=== PATIENT | male | born 1970 | race Caucasian/White ===

== ENCOUNTER 2019-04-05 11:51 | Inpatient (IN) | payer BC ==
[2019-04-05] MEDS ORDERED: ONDANSETRON 4 MG/2 ML VIAL IVP STA (12:13)
[2019-04-05] MEDS ORDERED: SODIUM CHLORIDE 0.9% 1,000 ML IV ONE ×3 (12:13→17:42)
[2019-04-05] MEDS ORDERED: MORPHINE SULFATE 4 MG/ML SYRINGE IVP STA ×3 (12:13→13:47)
--- NOTE | 2019-04-05 12:25 | ED ---
General Adult HPI - General Source: patient, RN notes reviewed Mode of arrival: wheelchair Limitations: no limitations <Marcelino Briscoe - Last Filed: 04/05/19 14:33> <Calvin Lopez - Last Filed: 04/05/19 15:03> - General Chief complaint: Shortness of Breath Stated complaint: SOB Time Seen by Provider: 04/05/19 12:06 - History of Present Illness Initial comments: This a 41-year-old male presents emergency Department chief complaint of sudden onset of right-sided back, rib pain. Patient states that he rolled over in bed resting 2 hours ago onto his left side in which he felt a pop and sudden onset of pain shortness of breath. Patient states it is worse with movement. Patient denies any trauma. Denies any leg swelling. Patient has no history of pneumothorax. Patient states he recently had a Lexiscan for presurgical cramps which was normal. Patient has no history of A. fib. Patient believes that he injured her rib. He does not taking for pain. Patient also adds that he had nausea and dry heaving throughout the night states it did not feel well yesterday (Marcelino Briscoe) - Related Data Home Medications Medication Instructions Recorded Confirmed Acetaminophen [Tylenol Arthritis] 650 mg PO Q12HR PRN 04/05/19 04/05/19 Allopurinol [Zyloprim] 300 mg PO DAILY 04/05/19 04/05/19 Aspirin [[place] Aspirin EC] 81 mg PO DAILY 04/05/19 04/05/19 Atenolol 25 mg PO DAILY 04/05/19 04/05/19 Celecoxib [CeleBREX] 100 mg PO DAILY 04/05/19 04/05/19 Ezetimibe [Zetia] 10 mg PO DAILY 04/05/19 04/05/19 INSULIN LISPRO (humaLOG) [humaLOG] See Protocol SQ AC-TID 04/05/19 04/05/19 Insulin Degludec [Tresiba 160 unit SQ BID 04/05/19 04/05/19 Flextouch U-200] Losartan Potassium 100 mg PO DAILY 04/05/19 04/05/19 Omeprazole 20 mg PO DAILY 04/05/19 04/05/19 amLODIPine [Norvasc] 10 mg PO DAILY 04/05/19 04/05/19 metFORMIN HCL [Glucophage] 850 mg PO TID 04/05/19 04/05/19 Allergies Allergy/AdvReac Type Severity Reaction Status Date / Time No Known Allergies Allergy Verified 04/05/19 13:11 Review of Systems ROS Other: All systems not noted in ROS Statement are negative. <Marcelino Briscoe - Last Filed: 04/05/19 14:33> ROS Other: All systems not noted in ROS Statement are negative. <Calvin Lopez - Last Filed: 04/05/19 15:03> ROS Statement: Those systems with pertinent positive or pertinent negative responses have been documented in the HPI. Past Medical History Past Medical History: Diabetes Mellitus, Hyperlipidemia, Hypertension Additional Past Medical History / Comment(s): GOUT, ESOPHAGEAL MASS, PULMONARY NODULES. History of Any Multi-Drug Resistant Organisms: None Reported Past Surgical History: No Surgical Hx Reported Past Psychological History: No Psychological Hx Reported Smoking Status: Former smoker Past Alcohol Use History: None Reported Past Drug Use History: None Reported <Marcelino Briscoe - Last Filed: 04/05/19 14:33> General Exam Limitations: no limitations General appearance: alert, in no apparent distress Head exam: Present: atraumatic, normocephalic, normal inspection Eye exam: Present: normal appearance, PERRL, EOMI. Absent: scleral icterus, conjunctival injection, periorbital swelling ENT exam: Present: normal exam, normal oropharynx, mucous membranes moist Neck exam: Present: normal inspection, full ROM. Absent: tenderness, meningi smus, lymphadenopathy Respiratory exam: Present: normal lung sounds bilaterally, chest wall tenderness (Posterior right). Absent: respiratory distress, wheezes, rales, rhonchi, stridor Cardiovascular Exam: Present: normal rhythm, tachycardia, normal heart sounds. Absent: systolic murmur, diastolic murmur, rubs, gallop, clicks GI/Abdominal exam: Present: soft, normal bowel sounds. Absent: distended, tenderness, guarding, rebound, rigid Back exam: Absent: CVA tenderness (R), CVA tenderness (L) Neurological exam: Present: alert, oriented X3, CN II-XII intact Skin exam: Present: warm, dry, intact, normal color. Absent: rash <Marcelino Briscoe - Last Filed: 04/05/19 14:33> Course <Calvin Lopez - Last Filed: 04/05/19 15:03> Vital Signs 04/05/19 04/05/19 04/05/19 11:58 13:00 14:06 Temperature 98.4 F 102.2 F H Pulse Rate 145 H 135 H 131 H Respiratory 22 24 42 H Rate Blood Pressure 129/75 160/92 167/98 O2 Sat by Pulse 94 L 95 95 Oximetry - Reevaluation(s) Reevaluation #1: 04/05/19 15:02 Patient reevaluated by myself, Dr. Lopez. Patient is resting in bed and appears somewhat uncomfortable. Patient remains tachycardic. Chart and results reviewed. Patient reevaluated and reexamined. I do agree with PA findings. This includes diagnostic interpretation and treatment plan. Case was discussed in detail with , covering for hospital call, who will admit. Case also discussed with Dr. Myers, who will consult for critical care. Patient will be admitted to ICU. (Calvin Lopez) EKG Findings - EKG Comments: EKG Findings:: EKG performed at 12.09 sinus tachycardia with incomplete right bundle rate of 152 QRS 96 QTC is QTC 324/5:15 <Marcelino Briscoe - Last Filed: 04/05/19 14:33> Medical Decision Making - Lab Data Result diagrams: 04/05/19 12:29 04/05/19 12:29 <Marcelino Briscoe - Last Filed: 04/05/19 14:33> - Lab Data Result diagrams: 04/05/19 12:29 04/05/19 12:29 <Calvin Lopez - Last Filed: 04/05/19 15:03> - Medical Decision Making 41-year-old male presented for right-sided chest and back pain patient will be admitted for PE, fever, further evaluation pulmonology and GI for esophageal mass (Marcelino Briscoe) - Lab Data Lab Results 04/05/19 04/05/19 04/05/19 Range/Units 12:29 12:29 12:29 WBC 13.5 H (3.8-10.6) k/uL RBC 5.66 (4.30-5.90) m/uL Hgb 16.2 (13.0-17.5) gm/dL Hct 46.9 (39.0-53.0) % MCV 82.8 (80.0-100.0) fL MCH 28.7 (25.0-35.0) pg MCHC 34.6 (31.0-37.0) g/dL RDW 17.1 H (11.5-15.5) % Plt Count 330 (150-450) k/uL Neutrophils % Not Reportable Neutrophils % (Manual) 69 % Band Neutrophils % 15 % Lymphocytes % Not Reportable Lymphocytes % (Manual) 13 % Monocytes % Not Reportable Monocytes % (Manual) 3 % Eosinophils % Not Reportable Basophils % Not Reportable Neutrophils # Not Reportable Neutrophils # (Manual) 11.30 H (1.3-7.7) k/uL Lymphocytes # Not Reportable Lymphocytes # (Manual) 1.76 (1.0-4.8) k/uL Monocytes # Not Reportable Monocytes # (Manual) 0.41 (0-1.0) k/uL Eosinophils # Not Reportable Basophils # Not Reportable Nucleated RBCs 0 (0-0) /100 WBC Manual Slide Review Performed Poikilocytosis Slight Anisocytosis Slight PT 12.2 H (9.0-12.0) sec INR 1.2 H (<1.2) APTT 23.7 (22.0-30.0) sec Sodium 134 L (137-145) mmol/L Potassium 4.3 (3.5-5.1) mmol/L Chloride 100 (98-107) mmol/L Carbon Dioxide 18 L (22-30) mmol/L Anion Gap 16 mmol/L BUN 16 (9-20) mg/dL Creatinine 0.74 (0.66-1.25) mg/dL Est GFR (CKD-EPI)AfAm >90 (>60 ml/min/1.73 sqM) Est GFR (CKD-EPI)NonAf >90 (>60 ml/min/1.73 sqM) Glucose 293 H (74-99) mg/dL Plasma Lactic Acid Paulo (0.7-2.0) mmol/L Calcium 9.5 (8.4-10.2) mg/dL Magnesium 1.3 L (1.6-2.3) mg/dL Total Bilirubin 1.5 H (0.2-1.3) mg/dL AST 21 (17-59) U/L ALT 42 (21-72) U/L Alkaline Phosphatase 91 (38-126) U/L Troponin I (0.000-0.034) ng/mL NT-Pro-B Natriuret Pep pg/mL Total Protein 7.5 (6.3-8.2) g/dL Albumin 4.2 (3.5-5.0) g/dL 04/05/19 04/05/19 04/05/19 Range/Units 12:29 12:29 14:15 WBC (3.8-10.6) k/uL RBC (4.30-5.90) m/uL Hgb (13.0-17.5) gm/dL Hct (39.0-53.0) % MCV (80.0-100.0) fL MCH (25.0-35.0) pg MCHC (31.0-37.0) g/dL RDW (11.5-15.5) % Plt Count (150-450) k/uL Neutrophils % Neutrophils % (Manual) % Band Neutrophils % % Lymphocytes % Lymphocytes % (Manual) % Monocytes % Monocytes % (Manual) % Eosinophils % Basophils % Neutrophils # Neutrophils # (Manual) (1.3-7.7) k/uL Lymphocytes # Lymphocytes # (Manual) (1.0-4.8) k/uL Monocytes # Monocytes # (Manual) (0-1.0) k/uL Eosinophils # Basophils # Nucleated RBCs (0-0) /100 WBC Manual Slide Review Poikilocytosis Anisocytosis PT (9.0-12.0) sec INR (<1.2) APTT (22.0-30.0) sec Sodium (137-145) mmol/L Potassium (3.5-5.1) mmol/L Chloride (98-107) mmol/L Carbon Dioxide (22-30) mmol/L Anion Gap mmol/L BUN (9-20) mg/dL Creatinine (0.66-1.25) mg/dL Est GFR (CKD-EPI)AfAm (>60 ml/min/1.73 sqM) Est GFR (CKD-EPI)NonAf (>60 ml/min/1.73 sqM) Glucose (74-99) mg/dL Plasma Lactic Acid Paulo 2.2 H* (0.7-2.0) mmol/L Calcium (8.4-10.2) mg/dL Magnesium (1.6-2.3) mg/dL Total Bilirubin (0.2-1.3) mg/dL AST (17-59) U/L ALT (21-72) U/L Alkaline Phosphatase (38-126) U/L Troponin I <0.012 (0.000-0.034) ng/mL NT-Pro-B Natriuret Pep 178 pg/mL Total Protein (6.3-8.2) g/dL Albumin (3.5-5.0) g/dL Critical Care Time Critical Care Time: Yes Total Critical Care Time: 40 <Marcelino Briscoe - Last Filed: 04/05/19 14:33> Critical Care Time: Total of 40 minutes of critical care time were used initially evaluated the patient, discussed has medical history with patient and family. Labs, chest x- ray one view portable stat was ordered along with EKG. There was no evidence of pneumothorax on chest x-ray and EKG showed sinus tachycardia felt related to pain. Patient was given pain meds, CT of the chest was ordered to rule out dissection, PE or any small pneumothorax not identified on x-ray. I did receive a phone call from radiologist who found right sided PE. Patient was started on high-dose heparin patient was given multiple rounds of pain medication which has mildly helped his discomfort. Patient is very anxious and will be given Ativan. Patient also found to have a fever that developed in the ER visit lactic acid, blood cultures were added. Patient was also given Tylenol at this time along with fluid bolus to improve heart rate. Case discussed with admitting physician in which patient be admitted with pulmonary consult, GI consult (Marcelino Briscoe) Disposition <Marcelino Briscoe - Last Filed: 04/05/19 14:33> <Calvin Lopez - Last Filed: 04/05/19 15:03> Clinical Impression: Pulmonary embolism, Esophageal mass, Fever Disposition: ADMITTED IP TO THIS HOSP Condition: Critical Referrals: [facility] [REFERRING] - 1-2 days
[2019-04-05 12:54] LABS: Anisocytosis Slight; HCT 46.9 % (39.0-53.0); HGB 16.2 gm/dL (13.0-17.5); MCH 28.7 pg (25.0-35.0); MCHC 34.6 g/dL (31.0-37.0); MCV 82.8 fL (80.0-100.0); Mean Platelet Volume 7.2; Platelet Count 330 k/uL (150-450); Poikilocytosis Slight; RBC 5.66 m/uL (4.30-5.90); RDW 17.1 % (11.5-15.5); WBC 13.5 k/uL (3.8-10.6)
[2019-04-05 12:57] LABS: ALT 42 U/L (21-72); AST 21 U/L (17-59); African American GFR (CKD) >90 (>60 ml/min/1.73 sqM); Albumin 4.2 g/dL (3.5-5.0); Alkaline Phosphatase 91 U/L (38-126); Anion Gap 16 mmol/L; Blood Urea Nitrogen 16 mg/dL (9-20); Calcium 9.5 mg/dL (8.4-10.2); Carbon Dioxide 18 mmol/L (22-30); Chloride 100 mmol/L (98-107); Glucose 293 mg/dL (74-99); Magnesium 1.3 mg/dL (1.6-2.3); Potassium 4.3 mmol/L (3.5-5.1); Sodium 134 mmol/L (137-145); Total Bilirubin 1.5 mg/dL (0.2-1.3); Total Protein 7.5 g/dL (6.3-8.2)
[2019-04-05 13:02] LABS: INR 1.2 (<1.2); Partial Thromboplastin Time 23.7 sec (22.0-30.0); Prothrombin Time 12.2 sec (9.0-12.0)
[2019-04-05 13:08] LABS: Band Neutrophils % 15 %; Lymphocytes # (M) 1.76 k/uL (1.0-4.8); Monocytes # (M) 0.41 k/uL (0-1.0); Neutrophils % (M) 69 %; Nucleated Red Blood Cells 0 /100 WBC (0-0); Total Cells Counted 100
[2019-04-05] MEDS ORDERED: ACETAMINOPHEN TAB 500 MG TAB PO STA (14:04)
--- NOTE | 2019-04-05 14:13 | XR ---
EXAMINATION TYPE: XR chest 1V portable DATE OF EXAM: 04/05/2019 HISTORY: Right sided pain. REFERENCE: NONE. FINDINGS: Heart is enlarged. The lungs are clear. There is mild vascular congestion without yasemin jagjit ma. Pleural spaces are clear. IMPRESSION: CARDIOMEGALY.
[2019-04-05] MEDS ORDERED: HEPARIN SODIUM,PORCINE 10,000 UNIT/ML 1 ML VIAL IV ONE (14:20)
[2019-04-05] MEDS ORDERED: HEPARIN SODIUM,PORCINE 5,000 UNIT/ML 1 ML VIAL IV PRN (14:20)
--- NOTE | 2019-04-05 14:23 | CT ---
EXAMINATION TYPE: CT chest angio for PE DATE OF EXAM: 04/05/2019 COMPARISON: NONE HISTORY: SOB, Possible PE CT DLP: 951.7 mGycm. Automated Exposure Control for Dose Reduction was Utilized. CONTRAST: CTA scan of the thorax is performed without and with IV Contrast, patient injected with 100 ml mL of Isovue 370, pulmonary embolism protocol. MIP Images are created on CT scanner and reviewed. FINDINGS: There are incompletely occluding segmental pulmonary emboli to the right lower lobe. No sec ondary evidence of right heart strain. Right ventricular to left ventricular ratio is within normal l imits. Only very minimal reflux of contrast is seen into the inferior vena cava. Upper abdomen demonstrates diffuse hepatic steatosis and no megaly of the spleen measures 14.7 cm in longitudinal dimension. Hepatic steatosis limits evaluation for hepatic masses. Asymmetric, right gre ater than left nodular appearing gynecomastia seen in the retroareolar regions. Postsurgical changes are seen in the distal esophagus with a hiatal hernia and filled distal esophagu s. There is wall thickening at the gastroesophageal junction and small paraesophageal lymph node seen on image 96 anteriorly and paraesophageal/subcarinal lymph nodes that are hyperdense on image 63 yumiko suring up to 1.0 cm in short axis. Right perihilar adenopathy and image 61 measures 1.2 cm in short a xis. Subcarinal lymph node is heterogenous measuring 2.2 cm in short axis. Other scattered prominent mediastinal lymph nodes are seen. No significant coronary calcifications are evident although the hea rt appears enlarged. No pericardial effusion. There is a small right pleural effusion and associated right basilar atelectasis. There are multiple pulmonary nodules (18 in total known to the patient) some of which are obscured by atelectasis in the pleural effusion. The largest on the left at the left lung base on image 104 measures 5 mm and the l argest on the right is seen in the right middle lobe on image 52 measuring 6 mm. These appear solid i n nature and are concerning for metastasis in this patient with known prior primary esophageal carcin megan. Mild multilevel degenerative changes of the spine are seen. IMPRESSION: 1. Segmental right lower lobe pulmonary emboli appear acute without evidence of right heart strain. 2. Small right pleural effusion and associated subsegmental compressive atelectasis. Finding was disc ussed with the ordering ER provider at 1420 on 04/05/[address] Kumari. 3. Gastroesophageal junction wall thickening and fluid-filled distal esophagus. Recurrence of the pat ient's underlying carcinoma is possible. Surrounding prominent but nonenlarged paraesophageal lymph n odes are seen as well as abnormal enlarged mediastinal adenopathy. 4. Multiple presumed metastatic bilateral solid pulmonary nodules, known to the patient.
[2019-04-05] MEDS ORDERED: LORazepam 2 MG/ML INJ IV STA (14:32)
[2019-04-05] MEDS ORDERED: ONDANSETRON 4 MG/2 ML VIAL IVP PRN (14:36)
[2019-04-05] MEDS ORDERED: ACETAMINOPHEN TAB 325 MG TAB PO PRN (14:36)
[2019-04-05] MEDS ORDERED: NALOXONE 0.4 MG/ML 1 ML VIAL IV PRN ×2 (14:36→16:52)
[2019-04-05] MEDS ORDERED: HYDROmorphone 1 MG/ML 1 ML SYRINGE IVP PRN (14:36)
[2019-04-05] MEDS ORDERED: HYDROmorphone 0.5 MG/0.5 ML SYRINGE IVP PRN (14:36)
[2019-04-05] MEDS: HEPARIN SOD,PORK IN 0.45% NACL 25,000 UNIT in 0.45% NACL 1 250ML.BAG IV SCH (14:36)
[2019-04-05] MEDS ORDERED: SODIUM CHLORIDE 0.9% 1,000 ML IV SCH (14:45)
[2019-04-05 15:30] LABS: Glucose,Whole Blood 271 mg/dL (75-99)
[2019-04-05 16:37] LABS: Glucose,Whole Blood 278 mg/dL (75-99)
[2019-04-05 17:01] LABS: Appearance,Urine Clear (Clear); Bacteria,Urine Rare /hpf; Bilirubin,Urine Negative (Negative); Blood,Urine Trace (Negative); Color,Urine Yellow; Glucose,Urine (UA) 4+ (Negative); Ketones,Urine 1+ (Negative); Leukocyte Esterase,Urine Negative (Negative); Mucus,Urine Few /hpf; Nitrite,Urine Negative (Negative); PH, Urine 5.5 (5.0-8.0); Protein,Urine 2+ (Negative); RBC,Urine 1 /hpf (0-5); Urobilinogen,Urine <2.0 mg/dL (<2.0)
[2019-04-05 17:02] LABS: Specific Gravity,Urine 1.048 (1.001-1.035)
[2019-04-05] MEDS ORDERED: hydrALAZINE HCL 20 MG/ML 1 ML VIAL IVP PRN (17:20)
[2019-04-05] MEDS ORDERED: VANCOMYCIN IV PER PHARMACY 1 EACH MISC MISCELLANE PRN (17:23)
[2019-04-05 17:30] LABS: ABG Base Excess -0.8 mmol/L; ABG HCO3 24 mmol/L (21-25); ABG Oxygen Saturation 96.8 % (94-97); ABG PCO2 41 mmHg (35-45); ABG PH 7.38 (7.35-7.45); ABG PO2 88 mmHg (83-108); ABG TCO2 26 mmol/L (19-24); Allen Test Performed? Yes
[2019-04-05] MEDS ORDERED: INSULIN ASPART (NovoLOG) 100 UNIT/ML VIAL SQ SCH (17:30)
[2019-04-05] MEDS ORDERED: Potassium Replacement Protocol 1 EACH MISC MISCELLANE PRN (17:42)
[2019-04-05] MEDS ORDERED: INSULIN REGULAR BOLUS (FROM DRIP BAG) IV ONE (17:42)
[2019-04-05] MEDS ORDERED: Magnesium Replacement Protocol 1 EACH MISC MISCELLANE PRN (17:42)
--- NOTE | 2019-04-05 17:57 | P.HPIM ---
History of Present Illness H&P Date: 04/05/19 Chief Complaint: Sudden onset right lower chest pain with shortness of breath today. This 49-year-old male with past medical history significant for hypertension, diabetes and metastatic to on high-dose insulin, hyperlipidemia, gout, recently diagnosed is free chills thickening with the remaining nodules currently currently being worked up, lumbar spine and stress fractures who presented to the emergency department to [facility] on with the above complaints. Patient stated that he took shower with hot bath and then he laid on the couch and day after little while he changes position and he felt a sudden sharp pain, severe, 10 over 10 in intensity, nonradiating, associated with significant shortness of breath. Patient was stating that he was not feeling the night before also has some dry heaves and nausea. He denies a history of from atrial fibrillation. Patient had a presurgical cardiac evaluation done which was normal. Patient was scheduled to have some back surgery for his lumbar spine fracture and possible cord compression in next 1-2 weeks. Patient denies loss of consciousness, dizziness, diaphoresis, palpitation, leg swelling, prolonged drive or flight in the recent past, and denies rest of the review system. Was noted to have the right lower lobe acute pulmonary embolism on CT PE protocol. Patient was admitted to the intensive care unit for further management under hospitalist service with critical care consultation on board. Review of Systems As reported above in HPI and rest of the review of system was essentially negative. Past Medical History Past Medical History: Diabetes Mellitus, Hyperlipidemia, Hypertension Additional Past Medical History / Comment(s): GOUT, ESOPHAGEAL MASS, PULMONARY NODULES, lumbar spine fracture with possible cord impingement (as reported by the patient). History of Any Multi-Drug Resistant Organisms: None Reported Past Surgical History: No Surgical Hx Reported Past Psychological History: No Psychological Hx Reported Smoking Status: Former smoker Past Alcohol Use History: None Reported Past Drug Use History: None Reported Medications and Allergies Home Medications Medication Instructions Recorded Confirmed Type Acetaminophen [Tylenol Arthritis] 650 mg PO Q12HR PRN 04/05/19 04/05/19 History Allopurinol [Zyloprim] 300 mg PO DAILY 04/05/19 04/05/19 History Aspirin [[place] Aspirin EC] 81 mg PO DAILY 04/05/19 04/05/19 History Atenolol 25 mg PO DAILY 04/05/19 04/05/19 History Celecoxib [CeleBREX] 100 mg PO DAILY 04/05/19 04/05/19 History Ezetimibe [Zetia] 10 mg PO DAILY 04/05/19 04/05/19 History INSULIN LISPRO (humaLOG) [humaLOG] See Protocol SQ AC-TID 04/05/19 04/05/19 History Insulin Degludec [Tresiba 160 unit SQ BID 04/05/19 04/05/19 History Flextouch U-200] Losartan Potassium 100 mg PO DAILY 04/05/19 04/05/19 History Omeprazole 20 mg PO DAILY 04/05/19 04/05/19 History amLODIPine [Norvasc] 10 mg PO DAILY 04/05/19 04/05/19 History metFORMIN HCL [Glucophage] 850 mg PO TID 04/05/19 04/05/19 History Allergies Allergy/AdvReac Type Severity Reaction Status Date / Time No Known Allergies Allergy Verified 04/05/19 16:54 Physical Exam Vitals: Vital Signs Temp Pulse Resp BP Pulse Ox 04/05/19 15:15 101.9 F H 126 H 36 H 156/95 95 04/05/19 14:06 102.2 F H 131 H 42 H 167/98 95 04/05/19 13:00 135 H 24 160/92 95 04/05/19 11:58 98.4 F 145 H 22 129/75 94 L Intake and Output 04/05/19 04/05/19 04/05/19 06:59 14:59 22:59 Other: Weight 136.078 kg - Constitutional Patient is in severe respiratory distress and unable to take deep breaths cause of the severe right lower chest pain with deep respirations. He is taking shallow respiration at rate of 40 per minute. General appearance: cooperative, severe distress - EENT Eyes: EOMI, normal appearance ENT: hearing grossly normal, NA/AT - Neck Neck: no lymphadenopathy, normal ROM, no rigidity, no stridor, no thyromegaly - Respiratory Respiratory: right: other (No pulmonary friction rub noted on exam over right lower chest.), bilateral: diminished (Due to patient not taking deep breaths related to severe pain.), negative: rales, rhonchi, wheezing - Cardiovascular Rhythm: regular Heart sounds: normal: S1, S2 Abnormal Heart Sounds: no systolic murmur, no diastolic murmur, no rub, no S3 Gallop, no S4 Gallop, other (Tachycardic.) - Gastrointestinal General gastrointestinal: no distended, normal bowel sounds, no rigid, soft, no tenderness - Integumentary Integumentary: no cellulitis, no cyanotic, no decreased turgor, no flushed, no jaundiced, normal, normal turgor, no rash, no ulcer - Musculoskeletal Patient laying in bed moves all 4 extremities no focal neuro deficit noted. - Psychiatric Psychiatric: A&O x's 3, appropriate affect, intact judgment & insight Results CBC & Chem 7: 04/05/19 12:29 04/05/19 12:29 Labs: Abnormal Lab Results - Last 24 Hours (Table) 04/05/19 04/05/19 04/05/19 Range/Units 12:29 12:29 12:29 WBC 13.5 H (3.8-10.6) k/uL RDW 17.1 H (11.5-15.5) % Neutrophils # (Manual) 11.30 H (1.3-7.7) k/uL PT 12.2 H (9.0-12.0) sec INR 1.2 H (<1.2) Sodium 134 L (137-145) mmol/L Carbon Dioxide 18 L (22-30) mmol/L Glucose 293 H (74-99) mg/dL POC Glucose (mg/dL) (75-99) mg/dL Plasma Lactic Acid Paulo (0.7-2.0) mmol/L Magnesium 1.3 L (1.6-2.3) mg/dL Total Bilirubin 1.5 H (0.2-1.3) mg/dL Ur Specific [place] (1.001-1.035) Urine Protein (Negative) Urine Glucose (UA) (Negative) Urine Ketones (Negative) Urine Blood (Negative) Urine Bacteria (None) /hpf Urine Mucus (None) /hpf 04/05/19 04/05/19 04/05/19 Range/Units 14:15 15:26 16:07 WBC (3.8-10.6) k/uL RDW (11.5-15.5) % Neutrophils # (Manual) (1.3-7.7) k/uL PT (9.0-12.0) sec INR (<1.2) Sodium (137-145) mmol/L Carbon Dioxide (22-30) mmol/L Glucose (74-99) mg/dL POC Glucose (mg/dL) 271 H 278 H (75-99) mg/dL Plasma Lactic Acid Paulo 2.2 H* (0.7-2.0) mmol/L Magnesium (1.6-2.3) mg/dL Total Bilirubin (0.2-1.3) mg/dL Ur Specific [place] (1.001-1.035) Urine Protein (Negative) Urine Glucose (UA) (Negative) Urine Ketones (Negative) Urine Blood (Negative) Urine Bacteria (None) /hpf Urine Mucus (None) /hpf 04/05/19 Range/Units 16:40 WBC (3.8-10.6) k/uL RDW (11.5-15.5) % Neutrophils # (Manual) (1.3-7.7) k/uL PT (9.0-12.0) sec INR (<1.2) Sodium (137-145) mmol/L Carbon Dioxide (22-30) mmol/L Glucose (74-99) mg/dL POC Glucose (mg/dL) (75-99) mg/dL Plasma Lactic Acid Paulo (0.7-2.0) mmol/L Magnesium (1.6-2.3) mg/dL Total Bilirubin (0.2-1.3) mg/dL Ur Specific [place] 1.048 H (1.001-1.035) Urine Protein 2+ H (Negative) Urine Glucose (UA) 4+ H (Negative) Urine Ketones 1+ H (Negative) Urine Blood Trace H (Negative) Urine Bacteria Rare H (None) /hpf Urine Mucus Few H (None) /hpf Chest x-ray: report reviewed CT scan - chest: report reviewed (Right lower lobe acute pulmonary embolism, multiple pulmonary nodules and esophageal abnormality as reported) Thrombosis Risk Factor Assmnt - DVT/VTE Prophylaxis DVT/VTE Prophylaxis: Contraindicated - See note (Patient is on full dose anticoagulation with IV heparin.) Assessment and Plan (1) Pulmonary embolism Narrative/Plan: Patient was started on IV heparin full dose protocol. Cause of pulmonary embolism not known at this time but due to patient's other comorbid illnesses may have been related to his hypercoagulable state secondary to possible esophageal mass. Patient will be needing anticoagulation at least for 3-6 months. Current Visit: Yes Status: Acute Priority: High Code(s): I26.99 - OTHER PULMONARY EMBOLISM WITHOUT ACUTE COR PULMONALE SNOMED Code(s): 97180366 (2) Acute respiratory distress Narrative/Plan: Patient was placed in intensive care unit for closer monitoring and the critical care was consulted patient may need to have respiratory protection prophylactically and intubation done if he continues to be tachypneic and there show signs of exhaustion. Current Visit: Yes Status: Acute Priority: High Code(s): R06.03 - ACUTE RESPIRATORY DISTRESS SNOMED Code(s): 813005315 (3) Tachycardia Narrative/Plan: Most likely secondary to above, patient will be monitored in the intensive care unit, IV fluids will be given to overcome dehydration if it is present and will be monitored closely. Current Visit: Yes Status: Acute Priority: High Code(s): R00.0 - TACHYC ARDIA, UNSPECIFIED SNOMED Code(s): 5413498 (4) Hypomagnesemia Narrative/Plan: Magnesium will be replaced and will check levels in the morning Current Visit: Yes Status: Acute Priority: High Code(s): E83.42 - HYPOMAGNESEMIA SNOMED Code(s): 067727823 (5) Hyponatremia Narrative/Plan: Mild hyponatremia, will monitor closely and check E-lytes in the morning Current Visit: Yes Status: Acute Priority: Medium Code(s): E87.1 - HYPO- OSMOLALITY AND HYPONATREMIA SNOMED Code(s): 14426220 (6) Lactic acidosis Narrative/Plan: It could be because of for acute pulmonary embolic same or secondary to metformin, will hold metformin for next 48 hours and will monitor and will repeat lactic acid level in the morning Current Visit: Yes Status: Acute Priority: High Code(s): E87.2 - ACIDOSIS SNOMED Code(s): 07218480 (7) Diabetes mellitus type 2, insulin dependent Narrative/Plan: Patient's metformin will be held and scheduled long-acting insulin will be decreased in dose and he will be started on consistent carbohydrate diet and there I will start him on aspart sliding scale according to the protocol. Will monitor for next 24-48 hours and readjust the dose of medications. Current Visit: No Status: Chronic Priority: High Code(s): E11.9 - TYPE 2 DIABETES MELLITUS WITHOUT COMPLICATIONS; Z79.4 - LONG-TERM (CURRENT) USE OF INSULIN SNOMED Code(s): 693809025 (8) Hypertension, essential, benign Narrative/Plan: Patient is on multiple medication to control his blood pressure I will continue amlodipine and atenolol and I will hold losartan as patient just recently received IV contrast for his CT chest. Will monitor renal function and resume full medication after 48 hours. In the meanwhile I will give Apresoline with parameters to better control blood pressure. Current Visit: No Status: Chronic Priority: Medium Code(s): I10 - ESSENTIAL (PRIMARY) HYPERTENSION SNOMED Code(s): 6176011 (9) Gout Narrative/Plan: Currently patient is stable and we'll continue home medications for now. Current Visit: No Status: Chronic Priority: Low Code(s): M10.9 - GOUT, UNSPECIFIED SNOMED Code(s): 88795393 (10) Pulmonary nodules/lesions, multiple Narrative/Plan: The region of pulmonary nodules is not known yet and patient was in the middle of being worked up for his esophageal mass and the nature of pulmonary nodules. Currently patient has more acute issues with respiratory distress and pulmonary embolism that is to be taken care of first. Patient will follow up with his primary doctor and global human resources director once discharged. Current Visit: No Status: Chronic Priority: High Code(s): R91.8 - OTHER NONSPECIFIC ABNORMAL FINDING OF LUNG FIELD SNOMED Code(s): 538805750 (11) Esophageal mass Narrative/Plan: Patient was worked up at other hospitals for his dysphagia lesion and biopsy as reported by the patient was inconclusive. This will be worked up again as an outpatient once patient is more clinically stable from his acute condition. Current Visit: No Status: Chronic Priority: High Code(s): K22.8 - OTHER SPECIFIED DISEASES OF ESOPHAGUS SNOMED Code(s): 262934205 (12) Fever Narrative/Plan: Multiple causes for his acute febrile illness including but not limited to acute pulmonary embolism, atelectasis from that, pleurisy and sd-infarct pleuritis to mention some. We'll continue to monitor and start patient on when necessary Tylenol to control the fever. Current Visit: Yes Status: Acute Priority: High Code(s): R50.9 - FEVER, UNSPECIFIED SNOMED Code(s): 531051439 Time with Patient: Greater than 30 (Total time spent was more than 45 minutes, most of the time was spent in coordination of care between the physicians and patient evaluation. Counseling was also done to the patient.)
[2019-04-05] MEDS: INSULIN REGULAR 100 UNIT in SODIUM CHLORIDE 0.9% 100 ML IV SCH (18:34)
[2019-04-05] MEDS: HYDROmorphone 1 MG/ML 1 ML SYRINGE IVP PRN ×3 (18:45→23:48)
[2019-04-05] MEDS: D5-0.45% NACL WITH KCL 20MEQ/L 1,000 ML IV SCH ×2 (18:55→18:56)
[2019-04-05] MEDS: SODIUM CHLORIDE 0.9% 1,000 ML IV SCH ×2 (18:57→23:35)
[2019-04-05 19:06] LABS: Glucose,Whole Blood 226 mg/dL (75-99)
[2019-04-05 19:12] LABS: Glucose,Whole Blood 229 mg/dL (75-99)
[2019-04-05] MEDS ORDERED: VANCOMYCIN 2,500 MG in SODIUM CHLORIDE 0.9% 500 ML 500 ML IVPB ONE (20:00)
[2019-04-05] MEDS: PANTOPRAZOLE 40 MG/10 ML VIAL IV SCH (20:50)
[2019-04-05] MEDS: CEFEPIME 1 GM in SODIUM CHLORIDE 0.9% 50 ML IVPB SCH (20:50)
[2019-04-05] MEDS: MAGNESIUM SULFATE-D5W PMX 1 GM in DEXTROSE/WATER 1 100ML.BAG IVPB SCH ×2 (20:50→23:49)
[2019-04-05] MEDS ORDERED: INSULIN DETEMIR (LEVEMIR) 100 UNIT/ML SYR SQ SCH (21:00)
[2019-04-05 21:11] LABS: African American GFR (CKD) >90 (>60 ml/min/1.73 sqM); Anion Gap 8 mmol/L; Carbon Dioxide 25 mmol/L (22-30); Chloride 103 mmol/L (98-107); Glucose 208 mg/dL (74-99); Potassium 4.5 mmol/L (3.5-5.1); Sodium 136 mmol/L (137-145)
[2019-04-05 21:16] LABS: Glucose,Whole Blood 198 mg/dL (75-99)
[2019-04-05 22:42] LABS: ABG Base Excess -0.4 mmol/L; ABG HCO3 24 mmol/L (21-25); ABG Oxygen Saturation 94.8 % (94-97); ABG PCO2 40 mmHg (35-45); ABG PO2 69 mmHg (83-108); ABG TCO2 26 mmol/L (19-24); Allen Test Performed? Yes
[2019-04-05 22:57] LABS: Glucose,Whole Blood 198 mg/dL (75-99)
[2019-04-05] MEDS ORDERED: ALPRAZolam 0.5 MG TAB PO PRN (23:10)
[2019-04-05 23:11] LABS: African American GFR (CKD) >90 (>60 ml/min/1.73 sqM); Anion Gap 9 mmol/L; Blood Urea Nitrogen 14 mg/dL (9-20); Carbon Dioxide 21 mmol/L (22-30); Chloride 105 mmol/L (98-107); Glucose 207 mg/dL (74-99); Phosphorus 2.7 mg/dL (2.5-4.5); Potassium 4.3 mmol/L (3.5-5.1); Sodium 135 mmol/L (137-145)
[2019-04-05] MEDS: LORazepam 2 MG/ML INJ IV PRN (23:48)
[2019-04-06 01:12] LABS: Glucose,Whole Blood 174 mg/dL (75-99)
[2019-04-06] MEDS: HEPARIN SOD,PORK IN 0.45% NACL 25,000 UNIT in 0.45% NACL 1 250ML.BAG IV SCH ×2 (01:29→12:56)
[2019-04-06] MEDS: D5-0.45% NACL WITH KCL 20MEQ/L 1,000 ML IV SCH (01:29)
[2019-04-06] MEDS: HYDROmorphone 1 MG/ML 1 ML SYRINGE IVP PRN ×6 (01:59→12:55)
[2019-04-06] MEDS: LORazepam 2 MG/ML INJ IV PRN ×2 (03:21→08:21)
[2019-04-06] MEDS: INSULIN REGULAR 100 UNIT in SODIUM CHLORIDE 0.9% 100 ML IV SCH (03:27)
[2019-04-06 03:37] LABS: Glucose,Whole Blood 163 mg/dL (75-99)
[2019-04-06] MEDS ORDERED: ACETAMINOPHEN IV (For NPO) 1,000 MG in EMPTY BAG 1 BAG IVPB ONE (04:06)
[2019-04-06] MEDS: SODIUM CHLORIDE 0.9% 1,000 ML IV SCH ×2 (04:18→08:39)
--- NOTE | 2019-04-06 04:42 | XR ---
EXAM: XR Chest, 1 View CLINICAL HISTORY: ITS.REASON XR Reason: shortness of breath TECHNIQUE: Frontal view of the chest. COMPARISON: CXR 04/05/19 FINDINGS: Lungs: See below. Pleural space: New extensive right lung density partially due to a new moderate sized pleural effusion and possible underlying alveolar disease. Mild bilateral interstitial thickening which may reflect a degree of pulmonary edema. No pneumothorax. Heart: Heart size appears enlarged. Mediastinum: Unremarkable. Bones/joints: Unremarkable. IMPRESSION: 1. New extensive right lung density partially due to a new moderate sized pleural effusion and possible underlying alveolar disease. Mild bilateral interstitial thickening which may reflect a degree of pulmonary edema. 2. Heart size appears enlarged.
[2019-04-06 04:47] LABS: HGB 14.5 gm/dL (13.0-17.5); Hypochromasia Slight; MCH 27.5 pg (25.0-35.0); MCHC 32.2 g/dL (31.0-37.0); MCV 85.5 fL (80.0-100.0); Mean Platelet Volume 7.2; Platelet Count 280 k/uL (150-450); Poikilocytosis Slight; RBC 5.26 m/uL (4.30-5.90); RDW 15.8 % (11.5-15.5)
[2019-04-06 04:53] LABS: INR 1.7 (<1.2); Partial Thromboplastin Time 63.6 sec (22.0-30.0); Prothrombin Time 16.5 sec (9.0-12.0)
[2019-04-06 04:58] LABS: African American GFR (CKD) >90 (>60 ml/min/1.73 sqM); Anion Gap 8 mmol/L; Blood Urea Nitrogen 15 mg/dL (9-20); Calcium 8.3 mg/dL (8.4-10.2); Carbon Dioxide 21 mmol/L (22-30); Chloride 107 mmol/L (98-107); Glucose 169 mg/dL (74-99); Magnesium 1.9 mg/dL (1.6-2.3); Potassium 4.3 mmol/L (3.5-5.1); Sodium 136 mmol/L (137-145)
[2019-04-06 05:17] LABS: WBC 19.4 k/uL (3.8-10.6)
[2019-04-06 05:19] LABS: Band Neutrophils % 24 %; Lymphocytes # (M) 1.55 k/uL (1.0-4.8); Monocytes # (M) 0.58 k/uL (0-1.0); Neutrophils % (M) 65 %; Nucleated Red Blood Cells 0 /100 WBC (0-0); Total Cells Counted 100
[2019-04-06 05:19] LABS: Glucose,Whole Blood 151 mg/dL (75-99)
[2019-04-06 07:20] LABS: Glucose,Whole Blood 120 mg/dL (75-99)
[2019-04-06] MEDS ORDERED: FUROSEMIDE 10 MG/ML 2 ML VIAL IV ONE (07:48)
[2019-04-06] MEDS ORDERED: D5-0.45% NACL WITH KCL 20MEQ/L 1,000 ML IV SCH (07:49)
[2019-04-06] MEDS ORDERED: INSULIN REGULAR 100 UNIT in SODIUM CHLORIDE 0.9% 100 ML IV SCH (08:00)
[2019-04-06] MEDS: PANTOPRAZOLE 40 MG/10 ML VIAL IV SCH (08:21)
--- NOTE | 2019-04-06 08:30 | P.CONS ---
History of Present Illness - Reason for Consult Consult date: 04/06/19 esophageal mass Requesting physician: Sylvia Le - Chief Complaint right sided back rib pain - History of Present Illness 49-year-old gentleman patient of Dr. Pop Bradshaw [place] past medical history of diabetes mellitus, hypertension, hyperlipidemia, gout admitted with acute right sided rib/back pain shortness of breath. Patient was evaluated 01/30/192018 at [place], [place] nontraumatic lumbar discomfort according to his CT lumbar thoracic spine reported L5-S1 abnormalities/fracture. Additionally upon radiographic imaging there was a questionable esophageal mass. CT of the thorax reported approximate 4 cm rounded cystic structure along the right lateral margin of the distal thoracic esophagus. Multiple small bilateral hilar lymph nodes. Numerous bilateral pulmonary nodules throughout the lung primarily in her peripheral distribution ranging in size between 1 and 6 mm. Diffuse fatty infiltration of the liver. Patient underwent EGD/EUS on 03/27/2019; EGD per was unremarkable no obvious medical so abnormalities, EUS performed by Dr. De La Cruz reported findings of a hypoechoic lesion identified at 36 cm from the incisors measuring 41.137.5 mm. It appears to arise from the MM layer but examination is impaired due to compression artifact. Multiple proximal mediastinal lymph nodes largest measuring 13.5 mm. Esophageal wall layers otherwise normal. Procedure was technically difficult due to patient movement and coughing cytology was obtained but pending. Family states he is scheduled soon for core biopsy at [facility] to assess with a definitive diagnosis. CT angiogram yesterday reported a segmental right lower lobe pulmonary emboli without evidence of right heart strain. GE junction wall thickening and fluid- filled distal esophagus. Surrounding prominent but not enlarged paraesophageal lymph nodes are seen as well as abnormal enlarged mediastinal adenopathy. Multiple presumed metastatic bilateral solid pulmonary nodules known to the patient. Receiving intravenous heparin. White count 13.5-19.4. Hemoglobin 14.5. Platelet 280. INR 1.7. Sodium 136. Potassium 4.3. BUN 15. Creatinine 0.8. Total bilirubin 1.5. AST 21. ALT 42. AP 91. Influenza not detected. Acetone negative. Unintentional weight loss of about 10 pounds since the end of December. Denies hematemesis hematochezia or melena. No nausea or vomiting. Denies abdominal pain. Afebrile. Review of Systems Constitutional: Denies fever, chills, sweats, weight gain, or loss. HEENT: Negative for migraines, blurred vision or loss, earaches, drainage, tinnitus, oral mucosal lesions, dysphagia, or odynophagia. Cardiac: Negative for chest pain, arrhythmias, or palpitation. Respiratory: Admitted with shortness of breath denies hemoptysis, cough, or sputum production. Gastrointestinal: See HPI for pertinent findings. Genitourinary: Negative for hematuria, urgency, frequency, polyuria, dysuria, or penile discharge. Musculoskeletal: Negative for muscle aches, swelling, arthritis, and arthralgias. Neurologic: Negative for stroke or TIA. Endocrine: Negative for thyroid problems. Skin: Negative for rash or itching. Psychiatric: Negative history for depression and anxiety Past Medical History Past Medical History: Diabetes Mellitus, Hyperlipidemia, Hypertension Additional Past Medical History / Comment(s): GOUT, ESOPHAGEAL MASS, PULMONARY NODULES, lumbar spine fracture with possible cord impingement (as reported by the patient). History of Any Multi-Drug Resistant Organisms: None Reported Past Surgical History: No Surgical Hx Reported Past Anesthesia/Blood Transfusion Reactions: No Reported Reaction Smoking Status: Former smoker Medications and Allergies Home Medications Medication Instructions Recorded Confirmed Type Acetaminophen [Tylenol Arthritis] 650 mg PO Q12HR PRN 04/05/19 04/05/19 History Allopurinol [Zyloprim] 300 mg PO DAILY 04/05/19 04/05/19 History Aspirin [[place] Aspirin EC] 81 mg PO DAILY 04/05/19 04/05/19 History Atenolol 25 mg PO DAILY 04/05/19 04/05/19 History Celecoxib [CeleBREX] 100 mg PO DAILY 04/05/19 04/05/19 History Ezetimibe [Zetia] 10 mg PO DAILY 04/05/19 04/05/19 History INSULIN LISPRO (humaLOG) [humaLOG] See Protocol SQ AC-TID 04/05/19 04/05/19 History Insulin Degludec [Tresiba 160 unit SQ BID 04/05/19 04/05/19 History Flextouch U-200] Losartan Potassium 100 mg PO DAILY 04/05/19 04/05/19 History Omeprazole 20 mg PO DAILY 04/05/19 04/05/19 History amLODIPine [Norvasc] 10 mg PO DAILY 04/05/19 04/05/19 History metFORMIN HCL [Glucophage] 850 mg PO TID 04/05/19 04/05/19 History Allergies Allergy/AdvReac Type Severity Reaction Status Date / Time No Known Allergies Allergy Verified 04/05/19 16:54 Physical Exam Vitals: Vital Signs Temp Pulse Resp BP Pulse Ox 04/06/19 07:00 111 H 18 136/96 94 L 04/06/19 06:30 113 H 17 160/89 93 L 04/06/19 06:00 120 H 27 H 122/85 93 L 04/06/19 05:30 98.7 F 114 H 17 122/73 94 L 04/06/19 05:00 120 H 19 121/85 94 L 04/06/19 04:30 128 H 20 127/79 93 L 04/06/19 04:00 103.1 F H 131 H 33 H 175/85 92 L 04/06/19 03:30 130 H 31 H 159/89 92 L 04/06/19 03:00 129 H 31 H 155/89 92 L 04/06/19 02:30 128 H 36 H 152/80 93 L 04/06/19 02:00 128 H 37 H 160/83 93 L 04/06/19 01:30 129 H 31 H 149/87 93 L 04/06/19 01:00 128 H 33 H 135/71 93 L 04/06/19 00:30 126 H 27 H 139/72 92 L 04/06/19 00:00 128 H 28 H 158/82 93 L 04/05/19 23:30 100.1 F H 129 H 30 H 167/92 94 L 04/05/19 23:00 126 H 39 H 168/79 94 L 04/05/19 22:30 128 H 36 H 176/96 93 L 04/05/19 22:00 126 H 42 H 170/92 93 L 04/05/19 21:30 123 H 26 H 147/74 93 L 04/05/19 21:00 99.1 F 120 H 24 158/80 93 L 04/05/19 20:30 118 H 35 H 164/83 96 04/05/19 20:00 115 H 30 H 130/82 94 L 04/05/19 19:30 114 H 27 H 148/87 95 04/05/19 19:00 115 H 26 H 135/96 95 08/04/19 18:30 112 H 37 H 154/90 95 04/05/19 18:00 114 H 40 H 129/83 90 L 04/05/19 17:30 117 H 30 H 116/72 04/05/19 17:00 117 H 28 H 143/76 04/05/19 16:30 124 H 37 H 152/90 95 04/05/19 16:09 118 H 96 04/05/19 15:30 100.6 F H 126 H 37 H 156/95 95 04/05/19 15:15 101.9 F H 126 H 36 H 156/95 95 04/05/19 14:06 102.2 F H 131 H 42 H 167/98 95 04/05/19 13:00 135 H 24 160/92 95 04/05/19 11:58 98.4 F 145 H 22 129/75 94 L Intake and Output 04/05/19 04/06/19 04/06/19 22:59 06:59 14:59 Intake Total 3031.260 1486.539 211.311 Output Total 1175 490 20 Balance 1856.260 996.539 191.311 Intake: IV 2785 1360 160 Cefepime 1 gm In Sodium 50 Chloride 0.9% 50 ml @ 100 mls/hr IVPB Q12HR ALF Rx #:[id number] D5-0.45% NaCl with KCl 600 1200 150 20Meq/l 1,000 ml @ 150 mls/hr IV .Q6H40M ALF Rx# :[id number] Magnesium Sulfate-D5w Pmx 100 100 1 gm In Dextrose/Water 1 100ml.bag @ 100 mls/hr IVPB Q1H ALF Rx#: [id number] Sodium Chloride 0.9% 1, 525 000 ml @ 200 mls/hr IV . Q5H ALF Rx#:[id number] Sodium Chloride 0.9% 1, 1010 60 10 000 ml @ 999 mls/hr IV . Q1H1M ONE Rx#:[id number] Vancomycin 2,500 mg In 500 Sodium Chloride 0.9% 500 ml 500 ml @ 167 mls/hr IVPB ONCE ONE Rx#: [id number] Intake, IV Titration 216.260 126.539 51.311 Amount Heparin Sod,Pork in 0.45% 180.526 61.273 NaCl 25,000 unit In 0.45 % NaCl 1 250ml.bag @ 16.9 UNITS/KG/HR 22.997 mls/ hr IV .[id number] [facility] Rx#: [id number] Insulin Regular 100 unit 35.734 65.266 51.311 In Sodium Chloride 0.9% 100 ml @ 0.1 UNITS/KG/HR 13.744 mls/hr IV .Q7H21M ALF Rx#:[id number] Oral 30 Output: Urine 1175 490 20 Other: Voiding Method Indwelling Catheter Indwelling Catheter Weight 140.5 kg General appearance: The patient is alert, oriented, in no acute distress. HET: Head is normocephalic and atraumatic. Pupils are equal and reactive. Oropharynx is clear without lesions. Neck: Supple without lymphadenopathy. Trachea midline. Heart: S1 S2. Regular rate and rhythm. Lungs: Diminished in bases bilaterally mild usage of accessory muscles. Abdomen: Soft, nontender, nondistended with bowel sounds. No peritoneal signs. No palpable organomegaly or masses. Extremities: Normal skin color and turgor. No cyanosis, rash, ulceration, clubbing, or edema. Radial and pedal pulses are 2/4 bilaterally. Neurological: No focal deficits. Strength and sensation are grossly intact. Results CBC & Chem 7: 04/06/19 04:18 04/06/19 04:18 Labs: Abnormal Lab Results - Last 24 Hours (Table) 04/05/19 04/05/19 04/05/19 Range/Units 12:29 12:29 12:29 WBC 13.5 H (3.8-10.6) k/uL RDW 17.1 H (11.5-15.5) % Neutrophils # (Manual) 11.30 H (1.3-7.7) k/uL PT 12.2 H (9.0-12.0) sec INR 1.2 H (<1.2) APTT (22.0-30.0) sec ABG pO2 (83-108) mmHg ABG Total CO2 (19-24) mmol/L Sodium 134 L (137-145) mmol/L Carbon Dioxide 18 L (22-30) mmol/L Glucose 293 H (74-99) mg/dL POC Glucose (mg/dL) (75-99) mg/dL Plasma Lactic Acid Paulo (0.7-2.0) mmol/L Calcium (8.4-10.2) mg/dL Magnesium 1.3 L (1.6-2.3) mg/dL Total Bilirubin 1.5 H (0.2-1.3) mg/dL Ur Specific [place] (1.001-1.035) Urine Protein (Negative) Urine Glucose (UA) (Negative) Urine Ketones (Negative) Urine Blood (Negative) Urine Bacteria (None) /hpf Urine Mucus (None) /hpf 04/05/19 04/05/19 04/05/19 Range/Units 14:15 15:26 16:07 WBC (3.8-10.6) k/uL RDW (11.5-15.5) % Neutrophils # (Manual) (1.3-7.7) k/uL PT (9.0-12.0) sec INR (<1.2) APTT (22.0-30.0) sec ABG pO2 (83-108) mmHg ABG Total CO2 (19-24) mmol/L Sodium (137-145) mmol/L Carbon Dioxide (22-30) mmol/L Glucose (74-99) mg/dL POC Glucose (mg/dL) 271 H 278 H (75-99) mg/dL Plasma Lactic Acid Paulo 2.2 H* (0.7-2.0) mmol/L Calcium (8.4-10.2) mg/dL Magnesium (1.6-2.3) mg/dL Total Bilirubin (0.2-1.3) mg/dL Ur Specific [place] (1.001-1.035) Urine Protein (Negative) Urine Glucose (UA) (Negative) Urine Ketones (Negative) Urine Blood (Negative) Urine Bacteria (None) /hpf Urine Mucus (None) /hpf 04/05/19 04/05/19 04/05/19 Range/Units 16:40 17:21 18:17 WBC (3.8-10.6) k/uL RDW (11.5-15.5) % Neutrophils # (Manual) (1.3-7.7) k/uL PT (9.0-12.0) sec INR (<1.2) APTT (22.0-30.0) sec ABG pO2 (83-108) mmHg ABG Total CO2 26 H (19-24) mmol/L Sodium (137-145) mmol/L Carbon Dioxide (22-30) mmol/L Glucose (74-99) mg/dL POC Glucose (mg/dL) (75-99) mg/dL Plasma Lactic Acid Paulo 2.5 H* (0.7-2.0) mmol/L Calcium (8.4-10.2) mg/dL Magnesium (1.6-2.3) mg/dL Total Bilirubin (0.2-1.3) mg/dL Ur Specific [place] 1.048 H (1.001-1.035) Urine Protein 2+ H (Negative) Urine Glucose (UA) 4+ H (Negative) Urine Ketones 1+ H (Negative) Urine Blood Trace H (Negative) Urine Bacteria Rare H (None) /hpf Urine Mucus Few H (None) /hpf 04/05/19 04/05/19 04/05/19 Range/Units 18:36 19:00 20:17 WBC (3.8-10.6) k/uL RDW (11.5-15.5) % Neutrophils # (Manual) (1.3-7.7) k/uL PT (9.0-12.0) sec INR (<1.2) APTT 78.6 H (22.0-30.0) sec ABG pO2 (83-108) mmHg ABG Total CO2 (19-24) mmol/L Sodium (137-145) mmol/L Carbon Dioxide (22-30) mmol/L Glucose (74-99) mg/dL POC Glucose (mg/dL) 226 H 229 H (75-99) mg/dL Plasma Lactic Acid [place] (0.7-2.0) mmol/L Calcium (8.4-10.2) mg/dL Magnesium (1.6-2.3) mg/dL Total Bilirubin (0.2-1.3) mg/dL Ur Specific [place] (1.001-1.035) Urine Protein (Negative) Urine Glucose (UA) (Negative) Urine Ketones (Negative) Urine Blood (Negative) Urine Bacteria (None) /hpf Urine Mucus (None) /hpf 04/05/19 04/05/19 04/05/19 Range/Units 20:17 21:05 22:40 WBC (3.8-10.6) k/uL RDW (11.5-15.5) % Neutrophils # (Manual) (1.3-7.7) k/uL PT (9.0-12.0) sec INR (<1.2) APTT (22.0-30.0) sec ABG pO2 69 L (83-108) mmHg ABG Total CO2 26 H (19-24) mmol/L Sodium 136 L (137-145) mmol/L Carbon Dioxide (22-30) mmol/L Glucose 208 H (74-99) mg/dL POC Glucose (mg/dL) 198 H (75-99) mg/dL Plasma Lactic Acid Paulo (0.7-2.0) mmol/L Calcium (8.4-10.2) mg/dL Magnesium (1.6-2.3) mg/dL Total Bilirubin (0.2-1.3) mg/dL Ur Specific [place] (1.001-1.035) Urine Protein (Negative) Urine Glucose (UA) (Negative) Urine Ketones (Negative) Urine Blood (Negative) Urine Bacteria (None) /hpf Urine Mucus (None) /hpf 04/05/19 04/05/19 04/06/19 Range/Units 22:41 22:45 01:00 WBC (3.8-10.6) k/uL RDW (11.5-15.5) % Neutrophils # (Manual) (1.3-7.7) k/uL PT (9.0-12.0) sec INR (<1.2) APTT (22.0-30.0) sec ABG pO2 (83-108) mmHg ABG Total CO2 (19-24) mmol/L Sodium 135 L (137-145) mmol/L Carbon Dioxide 21 L (22-30) mmol/L Glucose 207 H (74-99) mg/dL POC Glucose (mg/dL) 198 H 174 H (75-99) mg/dL Plasma Lactic Acid Paulo (0.7-2.0) mmol/L Calcium (8.4-10.2) mg/dL Magnesium (1.6-2.3) mg/dL Total Bilirubin (0.2-1.3) mg/dL Ur Specific [place] (1.001-1.035) Urine Protein (Negative) Urine Glucose (UA) (Negative) Urine Ketones (Negative) Urine Blood (Negative) Urine Bacteria (None) /hpf Urine Mucus (None) /hpf 04/06/19 04/06/19 04/06/19 Range/Units 03:26 04:18 04:18 WBC 19.4 H (3.8-10.6) k/uL RDW 15.8 H (11.5-15.5) % Neutrophils # (Manual) 17.20 H (1.3-7.7) k/uL PT (9.0-12.0) sec INR (<1.2) APTT (22.0-30.0) sec ABG pO2 (83-108) mmHg ABG Total CO2 (19-24) mmol/L Sodium 136 L (137-145) mmol/L Carbon Dioxide 21 L (22-30) mmol/L Glucose 169 H (74-99) mg/dL POC Glucose (mg/dL) 163 H (75-99) mg/dL Plasma Lactic Acid [place] (0.7-2.0) mmol/L Calcium 8.3 L (8.4-10.2) mg/dL Magnesium (1.6-2.3) mg/dL Total Bilirubin (0.2-1.3) mg/dL Ur Specific [place] (1.001-1.035) Urine Protein (Negative) Urine Glucose (UA) (Negative) Urine Ketones (Negative) Urine Blood (Negative) Urine Bacteria (None) /hpf Urine Mucus (None) /hpf 04/06/19 04/06/19 04/06/19 Range/Units 04:18 05:08 07:09 WBC (3.8-10.6) k/uL RDW (11.5-15.5) % Neutrophils # (Manual) (1.3-7.7) k/uL PT 16.5 H (9.0-12.0) sec INR 1.7 H (<1.2) APTT 63.6 H (22.0-30.0) sec ABG pO2 (83-108) mmHg ABG Total CO2 (19-24) mmol/L Sodium (137-145) mmol/L Carbon Dioxide (22-30) mmol/L Glucose (74-99) mg/dL POC Glucose (mg/dL) 151 H 120 H (75-99) mg/dL Plasma Lactic Acid [place] (0.7-2.0) mmol/L Calcium (8.4-10.2) mg/dL Magnesium (1.6-2.3) mg/dL Total Bilirubin (0.2-1.3) mg/dL Ur Specific [place] (1.001-1.035) Urine Protein (Negative) Urine Glucose (UA) (Negative) Urine Ketones (Negative) Urine Blood (Negative) Urine Bacteria (None) /hpf Urine Mucus (None) /hpf CT scan - chest: report reviewed (Dr. Reynoso) Assessment and Plan (1) Esophageal mass Narrative/Plan: 49-year-old gentleman admitted with right-sided back rib pain CT angio reported acute pulmonary embolism with multiple pulmonary nodules possible underlying metastatic disease as well as a distal esophageal abnormality. Recent evaluation outside facility reported abnormalities along the distal esophagus status post recent EGD EUS. EGD within normal limits however EUS reported a hypoechoic lesion identified at 36 cm from the incisors measuring 41.137.5 mm. It appears to arise from the MM layer but examination is impaired due to compression artifact. Multiple proximal mediastinal lymph nodes largest measuring 13.5 mm. Esophageal wall layers otherwise normal. Procedure was technically difficult due to patient movement and coughing cytology was obtained but pending. Underlying neoplasm possible GIST within the differential. Patient is scheduled soon at [facility] for core biopsy to assist with definitive diagnosis. Current Visit: Yes Status: Acute Code(s): K22.8 - OTHER SPECIFIED DISEASES OF ESOPHAGUS SNOMED Code(s): 181583828 (2) Pulmonary embolism Current Visit: Yes Status: Acute Priority: High Code(s): I26.99 - OTHER PULMONARY EMBOLISM WITHOUT ACUTE COR PULMONALE SNOMED Code(s): 28496715 Plan: 1. Considering complexity of his recent clinical history development recent EUS/ EGD results now admitted with acute pulmonary embolism discussion/plan of care was held at bedside with family and the cleaner and preparer Dr. Corona. Recommendation to transfer to [facility] for continuation of care/further workup possible core biopsy of esophageal normality for definitive diagnosis was advised. Patient and family are agreeable with transfer to [facility]. All questions were answered to their satisfaction. 2. Continue with present medical therapy. Thank you for this kind referral and the opportunity to participate in the care of your patient. This consultation was discussed with Dr. Reynoso. The impression and plan of care have been directed as dictated.
[2019-04-06] MEDS ORDERED: MELOXICAM 7.5 MG TAB PO SCH (09:00)
[2019-04-06] MEDS ORDERED: ATENOLOL 25 MG TAB PO SCH (09:00)
[2019-04-06] MEDS ORDERED: amLODIPine 10 MG TAB PO SCH (09:00)
[2019-04-06] MEDS ORDERED: ALLOPURINOL 300 MG TAB PO SCH (09:00)
[2019-04-06] MEDS ORDERED: ASPIRIN 81 MG PO SCH (09:00)
[2019-04-06 09:02] LABS: Glucose,Whole Blood 105 mg/dL (75-99)
[2019-04-06] MEDS: CEFEPIME 1 GM in SODIUM CHLORIDE 0.9% 50 ML IVPB SCH (09:41)
--- NOTE | 2019-04-06 09:51 | P.CNPUL ---
History of Present Illness Consult date: 04/06/19 Requesting physician: Sylvia Le Reason for consult: abnormal CXR/CT Chief complaint: Right-sided back and rib pain History of present illness: This is a pleasant 49-year-old gentleman who follows with Dr. Lord as his primary care physician. He has a history of gout, hyperlipidemia, hypertension, diabetes mellitus. He was recently found to have hypo-echo did lesion identified at 36 cm from the incisors measuring 41.137.5 mm. There are multiple proximal mediastinal lymph nodes and multiple bilateral pulmonary nodules. He had undergone EGD with EUS and biopsies at [facility] procedure was technically difficult due to the patient's movement and coughing. He is scheduled for a core biopsy at [facility] for definitive diagnosis. He presented here to the emergency room yesterday with a noncigarette of right- sided back and rib pain. Stating he felt a sudden pop and shortness of breath. No trauma. He did have some nausea and dry heaves as well. CT angiogram rev ealed segmental right lower lobe pulmonary emboli without evidence of right heart strain. There is a small right pleural effusion associated with subsegmental compressive atelectasis. The GE junction revealed thickening and fluid filled distal esophagus. Underlying carcinoma possible. There is s urrounding prominent but not enlarged paraesophageal lymph nodes as well as abnormal enlarged mediastinal adenopathy. Presumed metastatic bilateral solid pulmonary nodules. He is admitted to the intensive care unit and initiated on a heparin drip. We are seeing him today in consultation in the ICU. Today's chest x-ray reveals new extensive right lung density partially due to a new moderate-sized pleural effusion and possible underlying alveolar disease. Mild bilateral interstitial thickening may reflect some pulmonary edema. He is currently requiring 6 L nasal cannula to maintain O2 saturations in the 90s. He is tachycardic. Tachypneic. He did have a T-max of 103.1 earlier this morning. Currently afebrile. White count 19.4. Hemoglobin 14.5. INR 1.7. Creatinine 0.82. He has been initiated on vancomycin and cefepime. He is on 0.45 normal saline at 125 ML's per hour. Insulin drip at 6 units per hour. Continued on IV heparin. Review of Systems REVIEW OF SYSTEMS: CONSTITUTIONAL: Denies any recent significant weight loss or weight gain. EYES: Denies change in vision. EARS, NOSE, MOUTH, THROAT: Denies headaches, denies sore throat. CARDIOVASCULAR: Right-sided chest pain, no palpitations or syncopal episodes. RESPIRATORY: Positive for shortness of breath, cough, congestion no hemoptysis. GASTROINTESTINAL: Denies change in appetite, denies abdominal pain GENITOURINARY: Denies hematuria, denies infections. MUSKULOSKELETAL: Denies pain, denies swelling. INTEGUMENTARY: Denies rash, denies eczema. NEUROLOGICAL: Denies recent memory loss, no recent seizure activity. PSYCHIATRIC: Denies anxiety, denies depression. HEMATOLOGIC/LYMPHATIC: Denies anemia, denies enlarged lymph nodes. Past Medical History Past Medical History: Diabetes Mellitus, Hyperlipidemia, Hypertension Additional Past Medical History / Comment(s): GOUT, ESOPHAGEAL MASS, PULMONARY NODULES, lumbar spine fracture with possible cord impingement (as reported by the patient). History of Any Multi-Drug Resistant Organisms: None Reported Past Surgical History: No Surgical Hx Reported Past Anesthesia/Blood Transfusion Reactions: No Reported Reaction Smoking Status: Former smoker Medications and Allergies Home Medications Medication Instructions Recorded Confirmed Type Acetaminophen [Tylenol Arthritis] 650 mg PO Q12HR PRN 04/05/19 04/05/19 History Allopurinol [Zyloprim] 300 mg PO DAILY 04/05/19 04/05/19 History Aspirin [[employer] Aspirin EC] 81 mg PO DAILY 04/05/19 04/05/19 History Atenolol 25 mg PO DAILY 04/05/19 04/05/19 History Celecoxib [CeleBREX] 100 mg PO DAILY 04/05/19 04/05/19 History Ezetimibe [Zetia] 10 mg PO DAILY 04/05/19 04/05/19 History INSULIN LISPRO (humaLOG) [humaLOG] See Protocol SQ AC-TID 04/05/19 04/05/19 History Insulin Degludec [Tresiba 160 unit SQ BID 04/05/19 04/05/19 History Flextouch U-200] Losartan Potassium 100 mg PO DAILY 04/05/19 04/05/19 History Omeprazole 20 mg PO DAILY 04/05/19 04/05/19 History amLODIPine [Norvasc] 10 mg PO DAILY 04/05/19 04/05/19 History metFORMIN HCL [Glucophage] 850 mg PO TID 04/05/19 04/05/19 History Allergies Allergy/AdvReac Type Severity Reaction Status Date / Time No Known Allergies Allergy Verified 04/05/19 16:54 Physical Exam Vitals: Vital Signs Temp Pulse Resp BP Pulse Ox 04/06/19 08:30 113 H 22 138/87 95 04/06/19 08:00 97.7 F 111 H 24 135/91 95 04/06/19 07:30 113 H 17 116/92 94 L 04/06/19 07:00 111 H 18 136/96 94 L 04/06/19 06:30 113 H 17 160/89 93 L 04/06/19 06:00 120 H 27 H 122/85 93 L 04/06/19 05:30 98.7 F 114 H 17 122/73 94 L 04/06/19 05:00 120 H 19 121/85 94 L 04/06/19 04:30 128 H 20 127/79 93 L 04/06/19 04:00 103.1 F H 131 H 33 H 175/85 92 L 04/06/19 03:30 130 H 31 H 159/89 92 L 04/06/19 03:00 129 H 31 H 155/89 92 L 04/06/19 02:30 128 H 36 H 152/80 93 L 04/06/19 02:00 128 H 37 H 160/83 93 L 04/06/19 01:30 129 H 31 H 149/87 93 L 04/06/19 01:00 128 H 33 H 135/71 93 L 04/06/19 00:30 126 H 27 H 139/72 92 L 04/06/19 00:00 128 H 28 H 158/82 93 L 04/05/19 23:30 100.1 F H 129 H 30 H 167/92 94 L 04/05/19 23:00 126 H 39 H 168/79 94 L 04/05/19 22:30 128 H 36 H 176/96 93 L 04/05/19 22:00 126 H 42 H 170/92 93 L 04/05/19 21:30 123 H 26 H 147/74 93 L 04/05/19 21:00 99.1 F 120 H 24 158/80 93 L 04/05/19 20:30 118 H 35 H 164/83 96 04/05/19 20:00 115 H 30 H 130/82 94 L 08/04/19 19:30 114 H 27 H 148/87 95 04/05/19 19:00 115 H 26 H 135/96 95 04/05/19 18:30 112 H 37 H 154/90 95 04/05/19 18:00 114 H 40 H 129/83 90 L 04/05/19 17:30 117 H 30 H 116/72 04/05/19 17:00 117 H 28 H 143/76 04/05/19 16:30 124 H 37 H 152/90 95 04/05/19 16:09 118 H 96 04/05/19 15:30 100.6 F H 126 H 37 H 156/95 04/05/19 15:15 101.9 F H 126 H 36 H 156/95 95 04/05/19 14:06 102.2 F H 131 H 42 H 167/98 95 04/05/19 13:00 135 H 24 160/92 95 04/05/19 11:58 98.4 F 145 H 22 129/75 94 L Intake and Output 04/05/19 04/06/19 04/06/19 22:59 06:59 14:59 Intake Total 3031.260 1486.539 286.311 Output Total 1175 490 80 Balance 1856.260 996.539 206.311 Intake: IV 2785 1360 235 Cefepime 1 gm In Sodium 50 Chloride 0.9% 50 ml @ 100 mls/hr IVPB Q12HR ALF Rx #:[id number] D5-0.45% NaCl with KCl 600 1200 150 20Meq/l 1,000 ml @ 150 mls/hr IV .Q6H40M ALF Rx# :[id number] D5-0.45% NaCl with KCl 75 20Meq/l 1,000 ml @ 75 mls /hr IV .[id number] ALF Rx#: [id number] Magnesium Sulfate-D5w Pmx 100 100 1 gm In Dextrose/Water 1 100ml.bag @ 100 mls/hr IVPB Q1H ALF Rx#: [id number] Sodium Chloride 0.9% 1, 525 000 ml @ 200 mls/hr IV . Q5H ALF Rx#:[id number] Sodium Chloride 0.9% 1, 1010 60 10 000 ml @ 999 mls/hr IV . Q1H1M [facility] Rx#:[id number] Vancomycin 2,500 mg In 500 Sodium Chloride 0.9% 500 ml 500 ml @ 167 mls/hr IVPB ONCE ONE Rx#: [id number] Intake, IV Titration 216.260 126.539 51.311 Amount Heparin Sod,Pork in 0.45% 180.526 61.273 NaCl 25,000 unit In 0.45 % NaCl 1 250ml.bag @ 16.9 UNITS/KG/HR 22.997 mls/ hr IV .[id number] [facility] Rx#: [id number] Insulin Regular 100 unit 35.734 65.266 51.311 In Sodium Chloride 0.9% 100 ml @ 0.1 UNITS/KG/HR 13.744 mls/hr IV .Q7H21M [facility] Rx#:[id number] Oral 30 Output: Urine 1175 490 80 Other: Voiding Method Indwelling Catheter Indwelling Catheter Weight 140.5 kg GENERAL EXAM: Alert, fairly comfortable in no apparent distress. 6 L high flow nasal cannula. HEAD: Normocephalic. EYES: Normal reaction of pupils, equal size. NOSE: Clear with pink turbinates. THROAT: No erythema or exudates. NECK: No masses, no JVD. CHEST: No chest wall deformity. LUNGS: Equal air entry with crackles in the right posterior base, diminished. Tachypneic CVS: S1 and S2 normal with no audible murmur, regular rhythm. Tachycardic. ABDOMEN: No hepatosplenomegaly, normal bowel sounds, no guarding or rigidity. SPINE: No scoliosis or deformity SKIN: No rashes CENTRAL NERVOUS SYSTEM: No focal deficits, tone is normal in all 4 extremities. EXTREMITIES: There is no peripheral edema. No clubbing, no cyanosis. Peripheral pulses are intact. Results - Laboratory Findings CBC and BMP: 04/06/19 04:18 04/06/19 04:18 ABG ABG pH 7.40 (7.35-7.45) 04/05/19 22:40 ABG pCO2 40 mmHg (35-45) 04/05/19 22:40 ABG pO2 69 mmHg (83-108) L 04/05/19 22:40 ABG O2 Saturation 94.8 % (94-97) 04/05/19 22:40 PT/INR, D-dimer PT 16.5 sec (9.0-12.0) H 04/06/19 04:18 INR 1.7 (<1.2) H 04/06/19 04:18 Abnormal lab findings: Abnormal Labs 04/05/19 04/05/19 04/05/19 12:29 12:29 12:29 WBC 13.5 H RDW 17.1 H Neutrophils # (Manual) 11.30 H PT 12.2 H INR 1.2 H APTT ABG pO2 ABG Total CO2 Sodium 134 L Carbon Dioxide 18 L Glucose 293 H POC Glucose (mg/dL) Plasma Lactic Acid Paulo Calcium Magnesium 1.3 L Total Bilirubin 1.5 H Ur Specific Ericson Urine Protein Urine Glucose (UA) Urine Ketones Urine Blood Urine Bacteria Urine Mucus 04/05/19 04/05/19 04/05/19 14:15 15:26 16:07 WBC RDW Neutrophils # (Manual) PT INR APTT ABG pO2 ABG Total CO2 Sodium Carbon Dioxide Glucose POC Glucose (mg/dL) 271 H 278 H Plasma Lactic Acid Paulo 2.2 H* Calcium Magnesium Total Bilirubin Ur Specific Ericson Urine Protein Urine Glucose (UA) Urine Ketones Urine Blood Urine Bacteria Urine Mucus 04/05/19 04/05/19 04/05/19 16:40 17:21 18:17 WBC RDW Neutrophils # (Manual) PT INR APTT ABG pO2 ABG Total CO2 26 H Sodium Carbon Dioxide Glucose POC Glucose (mg/dL) Plasma Lactic Acid Paulo 2.5 H* Calcium Magnesium Total Bilirubin Ur Specific Ericson 1.048 H Urine Protein 2+ H Urine Glucose (UA) 4+ H Urine Ketones 1+ H Urine Blood Trace H Urine Bacteria Rare H Urine Mucus Few H 04/05/19 04/05/19 04/05/19 18:36 19:00 20:17 WBC RDW Neutrophils # (Manual) PT INR APTT 78.6 H ABG pO2 ABG Total CO2 Sodium Carbon Dioxide Glucose POC Glucose (mg/dL) 226 H 229 H Plasma Lactic Acid Paulo Calcium Magnesium Total Bilirubin Ur Specific Ericson Urine Protein Urine Glucose (UA) Urine Ketones Urine Blood Urine Bacteria Urine Mucus 04/05/19 04/05/19 04/05/19 20:17 21:05 22:40 WBC RDW Neutrophils # (Manual) PT INR APTT ABG pO2 69 L ABG Total CO2 26 H Sodium 136 L Carbon Dioxide Glucose 208 H POC Glucose (mg/dL) 198 H Plasma Lactic Acid Paulo Calcium Magnesium Total Bilirubin Ur Specific Ericson Urine Protein Urine Glucose (UA) Urine Ketones Urine Blood Urine Bacteria Urine Mucus 04/05/19 04/05/19 04/06/19 22:41 22:45 01:00 WBC RDW Neutrophils # (Manual) PT INR APTT ABG pO2 ABG Total CO2 Sodium 135 L Carbon Dioxide 21 L Glucose 207 H POC Glucose (mg/dL) 198 H 174 H Plasma Lactic Acid Paulo Calcium Magnesium Total Bilirubin Ur Specific Ericson Urine Protein Urine Glucose (UA) Urine Ketones Urine Blood Urine Bacteria Urine Mucus 04/06/19 04/06/19 04/06/19 03:26 04:18 04:18 WBC 19.4 H RDW 15.8 H Neutrophils # (Manual) 17.20 H PT INR APTT ABG pO2 ABG Total CO2 Sodium 136 L Carbon Dioxide 21 L Glucose 169 H POC Glucose (mg/dL) 163 H Plasma Lactic Acid Paulo Calcium 8.3 L Magnesium Total Bilirubin Ur Specific Ericson Urine Protein Urine Glucose (UA) Urine Ketones Urine Blood Urine Bacteria Urine Mucus 04/06/19 04/06/19 04/06/19 04:18 05:08 07:09 WBC RDW Neutrophils # (Manual) PT 16.5 H INR 1.7 H APTT 63.6 H ABG pO2 ABG Total CO2 Sodium Carbon Dioxide Glucose POC Glucose (mg/dL) 151 H 120 H Plasma Lactic Acid Paulo Calcium Magnesium Total Bilirubin Ur Specific Ericson Urine Protein Urine Glucose (UA) Urine Ketones Urine Blood Urine Bacteria Urine Mucus 04/06/19 08:51 WBC RDW Neutrophils # (Manual) PT INR APTT ABG pO2 ABG Total CO2 Sodium Carbon Dioxide Glucose POC Glucose (mg/dL) 105 H Plasma Lactic Acid Paulo Calcium Magnesium Total Bilirubin Ur Specific Ericson Urine Protein Urine Glucose (UA) Urine Ketones Urine Blood Urine Bacteria Urine Mucus - Diagnostic Findings Chest x-ray: image reviewed CT scan - chest: image reviewed Assessment and Plan Assessment: Impression: #1 Right-sided chest pain secondary to right-sided pleural effusion and pulmo nary emboli. #2 Acute hypoxic respiratory failure secondary to above. Currently on 6 L high flow nasal cannula. #3 Febrile illness secondary to above. #4 Recent diagnosis of esophageal mass being followed at [facility]. #5 lumbar spine fracture. #6 History of gout. #7 Diabetes mellitus, type II. #8 Hyperlipidemia. #9 Hypertension. Plan: The patient was seen and evaluated by Dr. Corona. Chest x-ray, CAT scans and labs all reviewed. The plan is to transfer him to [place] for continuation of care regarding his esophageal abnormality. He remains on IV heparin. Insulin drip at 6 units per hour. We will add Lasix 20 mg IV push times one decrease fluids at 75 mL per hour. In the interim, we'll continue full supportive care. He remains on vancomycin and cefepime. Titrate the FiO2 as tolerated. May require BiPAP support 12/5 and 40% FiO2. Add bronchodilators. We'll continue to follow make further recommendations based on his clinical status. I, the cosigning physician, performed a history & physical examination of the patient. Lungs sounds crackles in the right posterior base. Maintaining good O2 saturations in the 90s on 6 liters high flow nasal cannula. I discussed the assessment and plan of care with my nurse practitioner, Claudia Esparza. I attest to the above note as dictated by her. Time with Patient: Greater than 30
[2019-04-06] MEDS: CLEVIDIPINE BUTYRATE 25 MG in EMPTY BAG 1 BAG IV SCH ×2 (09:53→11:46)
[2019-04-06] MEDS ORDERED: VANCOMYCIN 2,250 MG in SODIUM CHLORIDE 0.9% 500 ML 500 ML IVPB SCH (10:00)
[2019-04-06 10:10] LABS: Glucose,Whole Blood 119 mg/dL (75-99)
[2019-04-06 11:26] LABS: Glucose,Whole Blood 156 mg/dL (75-99)
[2019-04-06] MEDS ORDERED: IPRATROPIUM-ALBUTEROL 3 ML NEB INHALATION SCH (12:00)
[2019-04-06 12:11] LABS: Glucose,Whole Blood 190 mg/dL (75-99)
[2019-04-06 12:12] LABS: ABG Base Excess -3.5 mmol/L; ABG HCO3 22 mmol/L (21-25); ABG Oxygen Saturation 92.5 % (94-97); ABG PCO2 38 mmHg (35-45); ABG PH 7.37 (7.35-7.45); ABG TCO2 23 mmol/L (19-24); Allen Test Performed? Yes
[2019-04-06 12:14] LABS: ABG PO2 59 mmHg (83-108)
--- NOTE | 2019-04-06 12:21 | P.DS ---
Providers Date of admission: 04/05/19 15:29 Expected date of discharge: 04/06/19 Attending physician: Sylvia Le MD Consults: 04/05/19 14:37 Consult Physician Urgent Consulting Provider: Caroline Gabriel Consult Reason/Comments: Pulmonary embolism Do you want consulting provider notified?: Yes Consult Physician Urgent Consulting Provider: Juana Reynoso Consult Reason/Comments: Esophageal mass Do you want consulting provider notified?: Yes 04/05/19 17:17 Consult Physician Stat Consulting Provider: Saulo Davidson Consult Reason/Comments: fever/infection Do you want consulting provider notified?: Yes Primary care physician: Rowan Lord MD - Discharge Diagnosis(es) (1) Pulmonary embolism Current Visit: Yes Status: Acute Priority: High (2) Acute respiratory distress Current Visit: Yes Status: Acute Priority: High (3) Tachycardia Current Visit: Yes Status: Acute Priority: High (4) Hypomagnesemia Current Visit: Yes Status: Acute Priority: High (5) Hyponatremia Current Visit: Yes Status: Acute Priority: Medium (6) Lactic acidosis Current Visit: Yes Status: Acute Priority: High (7) Diabetes mellitus type 2, insulin dependent Current Visit: Yes Status: Chronic Priority: High (8) Hypertension, essential, benign Current Visit: Yes Status: Chronic Priority: High (9) Gout Current Visit: No Status: Chronic Priority: Low (10) Pulmonary nodules/lesions, multiple Current Visit: Yes Status: Chronic Priority: High (11) Esophageal mass Current Visit: Yes Status: Inactive Priority: High (12) Fever Current Visit: Yes Status: Acute Priority: High Hospital Course: This 49-year-old male with past medical history significant for hypertension, DM-II on high-dose insulin, HLD, gout, recently diagnosed esophageal mucosal thickening and possible cancer with pulmonary nodules, lumbar spine and stress fractures who presented to the emergency department to [facility] with the above complaints. Patient stated that he took hot shower and then he to bed to rest and after little while he changed his position and he felt a sudden sharp pain, 10/10 in intensity, severe, non- radiating, associated with significant shortness of breath. He was noted to have the right lower lobe acute pulmonary embolism on CT PE protocol. Patient was admitted to the intensive care unit for further management under hospitalist service with critical care consultation on board. Patient was placed on IV heparin for PE protocol and was admitted under intensive care unit for closer monitoring and management due to his respiratory distress. Patient was also started on IV insulin drip and the thought of having DKA due to the presence of acidosis and ketones in urine analysis. Patient was started on IV antibiotics (cefepime and vancomycin) due to high white count with significant left shift and febrile illness. Cause was not known. Due to the fact that patient received a IV contrast study to diagnose his pulmonary embolism, his metformin and LANE inhibitor were held. Patient was started on when necessary Apresoline along with other antihypertensive medication to control blood pressure. Patient's fever broke early today and he was doing better until this morning when he is noted to have severe hypertension and his tachycardia and tachypnea got worse again. Patient was started on IV clevidipine with improvement in patient's blood pressure. Today patient is awake complains of continued severe pain in the right lower chest and difficulty breathing. Denies other complaints. Patient vitals reported as 165/111, 129, 30, A. Febrile, 92% on 4lit NCO2. His lungs were diminished and has few expiratory wheezing with some basilar crackles, heart was tachycardic with regular rhythm. Puffy extremities were noted which developed overnight. Patient IV fluids were discontinued was given Lasix 20 mg IV push 1 time dose and patient will is being planned for transfer to [facility] for further management of his multiple medical comorbidities. Patient's condition is critical and he is impending respiratory failure and because he will be needing further urgent workup for his esophageal mass and pulmonary nodules and to further evaluate the cause of his current acute decline in condition. It was recommended for patient to be transferred to higher center where along with his current medical condition his esophageal lesion can be worked up. Patient had some procedures done at [facility] in [place] and that was tried but they don't have the ICU bed available. We discussed this issue with patient and his and his mother and all 3 agreed in transfer ring him to [facility] in [place]. Call was made and talked to ICU fellow Dr. Velásquez and case was discussed with him. Dr. Velásquez accepted the patient and will arrange for the bed in the intensive care unit at [facility]. Patient will be transferred via air ambulance due to his critical condition and if his respiratory status further declining then as per Dr. Parker patient will be intubated before transfer. Patient's current IV drips are #1) heparin #2) clevidipine and #3) insulin. Pertinent Studies: Initial chest x-ray in the emergency room showed cardiomegaly and when it was repeated today which showed new extensive right lung density partially due to new moderate-sized pleural effusion and possible underlying valvular disease. Mild bilateral interstitial thickening which may reflect degree of pulmonary edema and heart size appears enlarged. Chest CT PE protocol was done yesterday which showed segmental right lower lobe pulmonary emboli acute without evidence of right heart strain. Small right pleural effusion and associated subsegmental compressive atelectasis and gastroesophageal junction wall thickening with fluid filled distal esophagus, recurrence of patient's underlying carcinoma is possible. Surrounding prominent but not enlarged paraesophageal lymph nodes were also seen as well as abnormal mediastinal adenopathy. Multiple presumed metastatic bilateral solid pulmonary nodules, known to patient. EKG reported as undetermined rhythm, tachycardia, incomplete right bundle branch block. Procedures: None. Patient Condition at Discharge: Critical Plan - Discharge Summary Discharge Rx Participant: No New Discharge Prescriptions: No Action amLODIPine [Norvasc] 10 mg PO DAILY Losartan Potassium 100 mg PO DAILY Ezetimibe [Zetia] 10 mg PO DAILY Celecoxib [CeleBREX] 100 mg PO DAILY Atenolol 25 mg PO DAILY Allopurinol [Zyloprim] 300 mg PO DAILY metFORMIN HCL [Glucophage] 850 mg PO TID Omeprazole 20 mg PO DAILY Insulin Degludec [Tresiba Flextouch U-200] 160 unit SQ BID INSULIN LISPRO (humaLOG) [humaLOG] See Protocol SQ AC-TID Aspirin [[employer] Aspirin EC] 81 mg PO DAILY Acetaminophen [Tylenol Arthritis] 650 mg PO Q12HR PRN PRN Reason: Pain Discharge Medication List Acetaminophen [Tylenol Arthritis] 650 mg PO Q12HR PRN 04/05/19 [History] Allopurinol [Zyloprim] 300 mg PO DAILY 04/05/19 [History] Aspirin [[employer] Aspirin EC] 81 mg PO DAILY 04/05/19 [History] Atenolol 25 mg PO DAILY 04/05/19 [History] Celecoxib [CeleBREX] 100 mg PO DAILY 04/05/19 [History] Ezetimibe [Zetia] 10 mg PO DAILY 04/05/19 [History] INSULIN LISPRO (humaLOG) [humaLOG] See Protocol SQ AC-TID 04/05/19 [History] Insulin Degludec [Tresiba Flextouch U-200] 160 unit SQ BID 04/05/19 [History] Losartan Potassium 100 mg PO DAILY 04/05/19 [History] Omeprazole 20 mg PO DAILY 04/05/19 [History] amLODIPine [Norvasc] 10 mg PO DAILY 04/05/19 [History] metFORMIN HCL [Glucophage] 850 mg PO TID 04/05/19 [History] Follow up Appointment(s)/Referral(s): Ana Mills, TONY [REFERRING] - 1-2 days Discharge Disposition: OTHER INSTITUTION NOT DEFINED
[2019-04-06 12:24] VITALS: TEMP 98.4
[2019-04-06] MEDS ORDERED: MIDAZOLAM 1 MG/ML 5 ML VIAL ONE (12:35)
[2019-04-06] MEDS ORDERED: SUCCINYLCHOLINE CHLORIDE VIAL 200 MG/10 ML VIAL IV ONE (12:35)
[2019-04-06] MEDS ORDERED: PROPOFOL 10 MG/ML 20 ML VIAL IV ONE (12:35)
[2019-04-06 12:50] VITALS: BMI 44.4
[2019-04-06] MEDS: PROPOFOL 1,000 MG in EMPTY BAG 1 BAG IV SCH ×2 (13:03→14:17)
--- NOTE | 2019-04-06 13:16 | XR ---
EXAMINATION TYPE: XR chest 1V portable DATE OF EXAM: 04/06/2019 COMPARISON: 04/06/2019 HISTORY: Endotracheal tube placement TECHNIQUE: Single frontal view of the chest is obtained. FINDINGS: Multifocal airspace disease is seen within the right lung with increasing right pleural ef fusion. Endotracheal tube is appropriately placed terminating at the level of the aortic arch approxi mately 2.1 cm from the sean. Scattered areas of subsegmental atelectasis are seen on the left. Mild multilevel degenerative changes of the spine. Cardiomediastinal silhouette is enlarged. IMPRESSION: Appropriately placed endotracheal tube. Increasing small right pleural effusion and righ t-sided airspace disease. Scattered left-sided atelectasis is also seen.
[2019-04-06 13:24] LABS: Glucose,Whole Blood 187 mg/dL (75-99)
[2019-04-06 13:49] LABS: ABG Base Excess -4.4 mmol/L; ABG HCO3 22 mmol/L (21-25); ABG Oxygen Saturation 98.7 % (94-97); ABG PCO2 47 mmHg (35-45); ABG PH 7.29 (7.35-7.45); ABG PO2 125 mmHg (83-108); ABG TCO2 24 mmol/L (19-24); Allen Test Performed? Yes
[2019-04-06] MEDS ORDERED: ACETAMINOPHEN IV (For NPO) 1,000 MG in EMPTY BAG 1 BAG IVPB STA (13:58)
[2019-04-06 14:25] VITALS: RESP 24
[2019-04-06 14:59] VITALS: BP 106/63; PULSE 109
[2019-04-06 15:03] LABS: Glucose,Whole Blood 206 mg/dL (75-99)
[2019-04-06] MEDS ORDERED: CHLORHEXIDINE GLUCONATE 15 ML CUP MUCOUS MEM SCH (21:00)
[2019-04-06 21:29] LABS: Hemoglobin A1C 8.1 % (4.0-6.0)
[2019-04-07] MEDS ORDERED: CHLORHEXIDINE GLUCONATE 15 ML CUP MUCOUS MEM ONE (13:20)
== END 2019-04-06 15:15 | disposition short-term general hospital (02) | DRG 208 ==
LOC: EC 11:51 → 2SICU 15:29
PROVIDERS: ADMIT Internal Medicine; ATTEND Internal Medicine
PROC: 5A1935Z Respiratory Ventilation, Less than 24 Consecutive Hours (ICD-10-PCS; principal; 2019-04-06)
PROC: 0BH17EZ Insertion of Endotracheal Airway into Trachea, Via Natural or Artificial Opening (ICD-10-PCS; principal; 2019-04-06)
DX: I26.99 Other pulmonary embolism without acute cor pulmonale (principal); J96.01 Acute respiratory failure with hypoxia; E87.1 Hypo-osmolality and hyponatremia; S32.009A Unspecified fracture of unspecified lumbar vertebra, initial encounter for closed fracture; E87.2 Acidosis; J90 Pleural effusion, not elsewhere classified; D68.69 Other thrombophilia; E86.0 Dehydration; I48.91 Unspecified atrial fibrillation; R13.10 Dysphagia, unspecified; K22.9 Disease of esophagus, unspecified; R91.8 Other nonspecific abnormal finding of lung field; I10 Essential (primary) hypertension; E78.5 Hyperlipidemia, unspecified; E11.9 Type 2 diabetes mellitus without complications; E83.42 Hypomagnesemia; M10.9 Gout, unspecified; Z79.899 Other long term (current) drug therapy; Z79.4 Long term (current) use of insulin; Z79.82 Long term (current) use of aspirin; Z79.84 Long term (current) use of oral hypoglycemic drugs; Z87.891 Personal history of nicotine dependence; Z79.1 Long term (current) use of non-steroidal anti-inflammatories (NSAID)
CPT/HCPCS: 36415; 36600; 71045; 71275; 80048; 80051; 80053; 81001; 82009; 82565; 82805; 82947; 83036; 83605; 83735; 83880; 84100; 84443; 84481; 84484; 84520; 85025; 85610; 85730; 87040; 87502; 93005; 94002; 94640; 96361; 96365; 96374; 96375; 96376; 99291